=== PATIENT | male | born 1980 | race Caucasian/White ===

== ENCOUNTER → 2017-12-28 11:49 | Outpatient (CLI) | payer OTHER, SELFPAY ==
[2017-12-28 13:54] LABS: Absolute Lymphocyte Count 3.01 X10^3/ul (0.83-4.51); Basophil# 0.02 X10^3/uL; Basophil% 0.3 % (0-1); Eosinophil# 0.16 X10^3/uL; Hematocrit 41.7 % (40-54); Hemoglobin 13.8 g/dl (13.0-16.5); Lymphocyte # 3.01 X10^3/ul (4.0); Lymphocyte % 38.4 % (19-41); Mean Corp Hgb Conc 33.1 g/gl (32-36); Mean Corpuscular Volume 90.7 fL (80-94); Mean Platelet Vol. 9.6 fl (6.2-12.0); Monocyte% 7.7 % (0-10); Neutrophil # 4.04 X10^3/uL (2.7-7.7); Neutrophil % 51.5 % (47-70); Platelet Count 269 K/mm3 (150-450); RBC Distribution Width CV 13.2 % (11.6-14.6); RBC Distribution Width SD 43.8 fl (35.1-43.9); White Blood Count 7.8 K/mm3 (4.4-11.0)
[2017-12-28 13:57] LABS: POSITIVE COUNT NO; POSITIVE DIFFERENTIAL NO; POSITIVE MORPHOLOGY NO
[2017-12-28 14:13] LABS: ALB/GLOB Ratio 1.1 RATIO (0.9-2.4); AST(SGOT) 36 U/L (15-37); Alanine Aminotransfer ALT/SGPT 122 U/L (16-61); Albumin, Serum 3.6 g/dL (3.2-5.0); Alkaline Phosphatase 125 U/L (45-117); Anion Gap 7 (5-15); BUN 18 mg/dL (7-18); BUN/Creat Ratio 21.6 RATIO (10-20); Calcium,Total 8.5 mg/dL (8.5-10.1); Chloride 108 mmol/L (98-107); Creatinine, Serum 0.83 mg/dL (0.70-1.30); EST Glomerular Filtration Rate 109 mL/min (>60); Est Glom Filt Rate - Afr Amer 132 mL/min (>60); Globulin 3.4 g/dL (2.2-4.2); Glucose 116 mg/dL (74-106); Potassium 3.5 mmol/L (3.5-5.1); Sodium Level 141 mmol/L (136-145); Thyroid Stim Hormone (TSH) 1.54 uIU/mL (0.358-3.74)
[2017-12-29 11:20] LABS: H. Pylori Antibody (IgG) 0.43 (0.00-0.79)
== END ==
PROVIDERS: Family Provider Nurse Practitioner; PCP Nurse Practitioner; Visit Provider Family Medicine
DX: K21.9 Gastro-esophageal reflux disease without esophagitis (principal)
CPT/HCPCS: 36415; 80053; 84443; 85025; 86677

== ENCOUNTER → 2019-09-08 08:20 | Outpatient (CLI) | payer OTHER, SELFPAY ==
[2019-09-08 10:36] LABS: Hematocrit 48.5 % (40-54); Hemoglobin 15.9 g/dL (13.0-16.5)
[2019-09-08 10:41] LABS: International Normalized Ratio 1.1; Partial Thromboplast Time 29.9 Seconds (24.1-36.2); Prothrombin Time (Protime)PT. 13.5 SECONDS (11.7-14.9)
[2019-09-08 11:03] LABS: ALB/GLOB Ratio 1.2 RATIO (0.9-2.4); AST(SGOT) 20 U/L (15-37); Alanine Aminotransfer ALT/SGPT 52 U/L (16-61); Alkaline Phosphatase 77 U/L (45-117); Anion Gap 6 (5-15); BUN 17 mg/dL (7-18); BUN/Creat Ratio 17.1 RATIO (10-20); Calcium,Total 9.3 mg/dL (8.5-10.1); Chloride 106 mmol/L (98-107); Cholesterol 189 mg/dL (200); EST Glomerular Filtration Rate 88 mL/min (>60); Est Glom Filt Rate - Afr Amer 106 mL/min (>60); Globulin 3.3 g/dL (2.2-4.2); Glucose 105 mg/dL (74-106); High Density Lipoprotein 45 mg/dL; PSA,Total - Annual Screen 0.54 ng/mL (0.00-4.00); Potassium 4.3 mmol/L (3.5-5.1); Protein, Total 7.3 g/dL (6.4-8.2); Sodium Level 139 mmol/L (136-145); Triglycerides 143 mg/dL; Very Low Density Lipoprotein 29 mg/dL (5-40)
== END ==
PROVIDERS: Family Provider Family Medicine; PCP Family Medicine; Referring Provider Family Medicine; Visit Provider Family Medicine
DX: Z00.00 Encounter for general adult medical examination without abnormal findings (principal); K42.9 Umbilical hernia without obstruction or gangrene
CPT/HCPCS: 36415; 80053; 80061; 84153; 85014; 85018; 85610; 85730; G0103

== ENCOUNTER 2019-09-15 08:00 | Day surgery (SDC) | payer OTHER, SELFPAY ==
--- NOTE | 2019-09-08 03:25 | HP_ITS ---
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 Accompanied by: Is patient in pain?: No Allergies No Known Allergies Allergy (Unverified 09/08/19 15:17) Medications apple cider vinegar 500 mg tablet mg PO TID tab 09/08/19 [History] garlic 1,000 mg capsule 1,000 mg PO DAILY cap 09/08/19 [History Confirmed 09/08/19] glucosamine 500 vm-iyecweyad-jxpckfbs comp 400 mg-D3 667 unit-C-Mn cap cap PO BID cap 09/08/19 [History] multivitamin 1 cap PO DAILY 09/08/19 [History] omega 9-zdn-htn-fish oil 1,000 mg (120 mg-180 mg) capsule 1 cap PO DAILY 09/08/19 [History Confirmed 09/08/19] PFSH Medical History (Updated 09/08/19 @ 15:14 by Liz Villalobos) GERD (gastroesophageal reflux disease) (Acute) Umbilical hernia (Acute) Surgical History (Updated 09/08/19 @ 15:15 by Liz Villalobos) No history of previous surgery (Acute) Family History (Updated 09/08/19 @ 15:15 by Liz Rust Villalobos) Father Diabetes Heart disease Grandfather CVA (cerebral vascular accident) Social History (Updated 09/08/19 @ 15:25 by Lawson Armstrong MD) Smoking Status: Former smoker alcohol intake: current substance use type: does not use HPI HPI HPI: KENYA BOSS, is a 39 M who presents to the office today for HPI HPI Surgical H&P: Yes HPI: KENYA BOSS, is a 39 M who presents to the office today for umbilical hernia. Patient reports that in March he was trying to stop a log from falling and it hit him in the abdomen and he was having a lot of pain at that time. He is experienced bulging and pain since then. Patient reports no nausea or vomiting. ROS General General: No weight change, appetite, fatigue, colon cancer, breast cancer or weakness HEENT HEENT: No difficulty swallowing, eye injury, eye surgery, swollen glands or hoarseness Endo Endocrine: No thyroid disease, diabetes mellitus, thyroid cancer, Hair loss, heat intolerance or cold intolerance Skin Skin: No rash or changing moles Breast Breast: No left breast lump, right breast lump, nipple discharge, breast pain, abnormal mammogram, abnormal US or breast enlargement Musc Musculoskeletal: No back problems, arthritis, rheumatoid arthritis, gout or joint pain Cardio Cardiovascular: No murmur, pacemaker, heart disease, atrial fibrillation, high blood pressure, heart attack, heart stent, palpitations, shortness of breat with exertion or chest pain Psych Psychiatric: No depression, anxiety or hearing voices Resp Respiratory: No shortness of breath, No sleep apnea, No cough, No COPD, No asthma, No emphysema, No wheezing Gastro Gastrointestinal: No abdominal pain, No nausea or vomiting, No diarrhea, No constipation, No blood in stool, Yes acid reflux, No hemorrhoids, No ulcers, No gallbladder problem, No black,tarry stools Josh Hematologic: No blood thinners, No blood disorders, No bleeding, No anemia, No blood clots Neuro Neurologic: No system reviewed and no additional complaints, except as docu, No as per HPI, No abnormal walking, No abnormal hearing, No abnormal movements, No abnormal speech, No behavioral changes, No burning sensations, No confusion, No seizure-like activity, No unsteadiness, No dizziness, No localized weakness, No frequent falls, No headache(s), No lack of coordination, No loss of vision, No memory loss, No numbness, No other visual disturbances, No radiating pain, No restless legs, No sensory deficit, No fainting, No tingling, No tremor(s), No weakness, No other Exam Const General: cooperative Orientation: alert, oriented x3 HENMT Head: normal to inspection Ears: hearing grossly normal bilaterally Eyes Visual Colmenares: normal visual colmenares by confrontation Neck Neck: normal visual inspection Chest Chest palpation & inspection: normal inspection of the chest Breast Palpation: No nipple discharge Resp Effort & Inspection: normal respiratory effort Auscultation: clear to auscultation bilaterally Cardio Rate: regular rate Rhythm: regular rhythm Heart Sounds: no murmurs GI Inspection: non-distended Palpation: soft, hernia umbilical, nontender Musc Cervical Spine: normal cervical lordosis, cervical ROM normal Skin General: no rashes or lesions noted Neuro General: alert, oriented x3 Cranial Nerves: CN's II-XI intact bilaterally Cognition: normal cognition Extrem General: normal to inspection, full ROM Psych Appearance: grossly normal Affect: normal affect Assessment & Plan Problems 1. Umbilical hernia without obstruction and without gangrene K42.9 Plan The patient has a small umbilical hernia with a defect approximately 1 cm in diameter. It is easily reducible. I discussed umbilical hernia repair with the patient in detail. I discussed suture repair if the hernia defect is less than 1 cm or mesh repair if the defect is over 1 cm. I also discussed the risks include modalities to bleeding, infection, underlying organ injury. The patient understands the risks and is well to proceed. I discussed that after surgery he would be limited to 20 pounds of lifting for 4 weeks. Lawson Armstrong MD Pager: [facility] [address] [place] [address], [address] [place] [address] Office: Coding Level of Care Code Off vis,new,level 4 Diagnoses Umbilical hernia without obstruction and without gangrene K42.9 ??Obstruction and gangrene presence: without obstruction or gangrene 09/08/19 3925 <Electronically signed by Lawson ziegler MD> Date _ Lawson Armstrong MD I have re-examined the patient. There are no clinical changes since date of exam.
[2019-09-08 15:16] VITALS: BMI 35.4
[2019-09-15 08:46] VITALS: BP 134/94; PULSE 68; RESP 16; TEMP 36.3; O2SAT 97; BMI 35.1
[2019-09-15] MEDS: Lactated Ringers 1,000 ML 100 ML IV (08:54)
[2019-09-15] MEDS: Bupiv/Epi 0.5% Mpf 30 ML Vial (08:55)
[2019-09-15] MEDS: Cefazolin 2 GM in 0.9% Normal Saline 100 ML IV (09:08)
[2019-09-15 09:45] VITALS: BP 117/79; BP 134/94; PULSE 70; RESP 18; TEMP 36.3; O2SAT 94
--- NOTE | 2019-09-15 09:57 | PCM.OPRPT ---
Problem List (1) Umbilical hernia Status: Acute Qualifiers: Obstruction and gangrene presence: without obstruction or gangrene Qualified Code(s): K42.9 - Umbilical hernia without obstruction or gangrene Report of Operation Date of Procedure: 09/15/19 Pre-Operative Diagnosis: Umbilical hernia Post-Operative Diagnosis: Same Surgery/Procedure Performed:: Umbilical hernia repair Description of Procedure: Patient was brought to the operating room and general anesthesia was induced. The abdomen was prepped and draped in usual sterile fashion. A curvilinear incision was marked and anesthetized superior to the umbilicus. An incision was then made and deepened to the fascia. The umbilical stalk was surrounded and divided from the hernia sac. The fascia was then surrounded and cleared. Next the small fascial defect was closed with interrupted 0 PDS sutures. The umbilical stalk was then tacked to the fascia using 3-0 Vicryl suture. The incision was closed with interrupted 3-0 Vicryl sutures as well as a running 4-0 Monocryl suture. Steri-Strips and a bandage were then applied. Patient was awoken and taken to PACU in stable condition. - Admit VTE Documentation VTE Mechan Device Prophylaxis: SCD's
[2019-09-15 10:00] VITALS: BP 100/77; BP 134/94; PULSE 57; RESP 18; O2SAT 97
--- NOTE | 2019-09-15 10:02 | PCM.DC.HER ---
Discharge Diet: Light diet - advance as tolerated Discharge Activity: Return to Normal Activity, May Not Drive - for 2-3 days or while taking narcotic pain meds., May Shower - with the bandage in place 1-2 days after surgery. Lifting Restrictions: 20 pounds for 4-6 weeks. Additional Activity Instructions:: Climbing stairs is fine, walking is encouraged. Sitting in bed may be uncomfortable. Sitting up using your lateral muscles (sitting up sideways) is usually more comfortable. Do not drive, work heavy equipment of sign legal documents for 24 hours. Pain medications may cause nausea, you should typically eat light foods as you take your pain medications. Pain medications may also cause constipation. If you have difficulty with this, discuss with your doctor. Call your doctor if your incision/area has: Continuous Slow Oozing, Sudden Increased Bleeding, Increased Pain/ Swelling, Increased Redness, Foul Smelling Discharge Call your doctor if you observe: Fever of 101 or Higher Suture Line Care: Avoid Pulling/Pushing, Avoid Pinching/Bending Change Dressing in (Days):: 3 - Leave steri-strips for 1 week. May protect with a guaze bandaid. Cleanse incision/area with: Keep Dressing Clean & Dry Allergies/Adverse Reactions: Allergies No Known Allergies Allergy (Unverified 09/15/19 08:26) Medications to take at Discharge apple cider vinegar 500 mg tablet 500 mg PO TID tab 09/08/19 garlic 1,000 mg capsule 1,000 mg PO DAILY cap 09/08/19 glucosamine 500 ut-ncjgovlbp-mhnfflhk comp 400 mg-D3 667 unit-C-Mn cap 1 cap PO BID cap 09/08/19 multivitamin 1 cap PO DAILY 09/08/19 omega 0-twh-uxt-fish oil 1,000 mg (120 mg-180 mg) capsule 1 cap PO DAILY 09/08/19 Oxycodone HCl/Acetaminophen [Percocet 5-325 mg Tablet] 1 - 2 tab PO Q6H PRN 4 Days #20 tablet 09/15/19 The following prescriptions were given: Oxycodone HCl/Acetaminophen [Percocet 5-325 mg Tablet] 1 - 2 tab PO Q6H PRN 4 Days #20 tablet PRN Reason: Pain Score 4-10/10 Transmission Status: Sent to [facility] Primary Care Physician: Wilfred Shankar MD [Primary Care Provider] - Test Results: Test results from this visit will be discussed in further detail at your follow-up appointment, if applicable. Please Follow Up With: Lawson Armstrong MD When: Please call to schedule 2 week follow up appointment. [phone]
[2019-09-15 10:15] VITALS: BP 103/69; BP 134/94; PULSE 55; RESP 18; O2SAT 97
[2019-09-15 10:29] VITALS: BP 107/76; BP 134/94; PULSE 68; RESP 18; TEMP 36.3; O2SAT 93
[2019-09-15 11:36] VITALS: BP 124/89; BP 134/94; PULSE 51; RESP 16; TEMP 36.4; O2SAT 98
== END 2019-09-15 11:45 | disposition home or self-care (01) ==
LOC: SDC 08:00 → AC 08:05
PROVIDERS: Family Provider Family Medicine; PCP Family Medicine; Referring Provider Surgery; Visit Provider Surgery
PROC: (CPT 49585; principal; 2019-09-15 09:45)
DX: K42.9 Umbilical hernia without obstruction or gangrene (principal); K21.9 Gastro-esophageal reflux disease without esophagitis; Z87.891 Personal history of nicotine dependence
CPT/HCPCS: 00830; 49585; J7120; J2405

== ENCOUNTER → 2020-07-11 10:02 | Outpatient (CLI) | payer OTHER, SELFPAY ==
[2020-07-11 13:17] LABS: Thyroid Stim Hormone (TSH) 1.06 uIU/mL (0.358-3.74)
[2020-07-14 16:07] LABS: Endomysial Antibody IgA Negative (Negative); Immunoglobulin A 169 mg/dL (90-386); Testosterone, Free 6.55 ng/dL (5.00-21.00)
[2020-07-15 04:45] LABS: Deamidated Gliadin IgA 3 units (0-19); Deamidated Gliadin IgG 4 units (0-19); Testosterone, % Free 2.19 % (1.50-4.20); Testosterone, Total 299 ng/dL (264-916); t-Transglutaminase IgA <2 U/mL (0-3)
== END ==
PROVIDERS: PCP Family Medicine; Referring Provider Family Medicine; Visit Provider Family Medicine
DX: R68.82 Decreased libido (principal); K52.9 Noninfective gastroenteritis and colitis, unspecified
CPT/HCPCS: 36415; 82784; 83516; 84402; 84403; 84443; 86255

== ENCOUNTER → 2020-09-04 09:23 | Outpatient (CLI) | payer OTHER, SELFPAY | PROVIDERS: PCP Family Medicine; Referring Provider Family Medicine; Visit Provider Family Medicine | DX: R68.82 Decreased libido (principal) | CPT/HCPCS: 36415; 82784; 83516; 84402; 84403; 86255 ==

== ENCOUNTER → 2024-10-13 | Outpatient (CLI) | payer BC, SELFPAY ==
[2024-10-13 12:40] LABS: Absolute Lymphocyte Count 3.21 X10^3/uL (0.83-4.51); Basophil# 0.05 X10^3/uL; Basophil% 0.5 % (0-1); Eosinophil# 0.11 X10^3/uL; Eosinophils% 1.2 % (0-5); Hematocrit 46.7 % (40-54); Hemoglobin 15.2 g/dL (13.0-16.5); Lymphocyte # 3.21 X10^3/ul (0.83-4.51); Lymphocyte % 34.6 % (19-41); Mean Corp Hgb Conc 32.5 g/dL (32-36); Mean Corpuscular Hgb 30.1 pg (27.0-32.0); Mean Corpuscular Volume 92.5 fL (80-94); Mean Platelet Vol. 9.5 fl (6.2-12.0); Monocyte# 0.92 X10^3/uL; Monocyte% 9.9 % (0-10); NRBC Flagged by Analyzer 0 % (0-5); Neutrophil # 4.98 X10^3/uL (2.7-7.7); Neutrophil % 53.6 % (47-70); Platelet Count 277 K/mm3 (150-450); RBC Distribution Width CV 12.8 % (11.6-14.6); RBC Distribution Width SD 43.6 fl (35.1-43.9); Red Blood Count 5.05 M/mm3 (4.6-6.2); White Blood Count 9.3 K/mm3 (4.4-11.0)
[2024-10-13 13:28] LABS: ALB/GLOB Ratio 1.1 RATIO (0.9-2.4); AST(SGOT) 18 U/L (15-37); Alanine Aminotransfer ALT/SGPT 36 U/L (16-61); Albumin, Serum 3.8 g/dL (3.2-5.0); Alkaline Phosphatase 67 U/L (45-117); Anion Gap 7 (5-15); BUN 17 mg/dL (7-18); Calcium,Total 9.4 mg/dL (8.5-10.1); Chloride 107 mmol/L (98-107); Cholesterol 188 mg/dL (200); EST Glomerular Filtration Rate 97 mL/min (>60); Est Glom Filt Rate - Afr Amer 117 mL/min (>60); Globulin 3.4 g/dL (2.2-4.2); Glucose 89 mg/dL (74-106); High Density Lipoprotein 41 mg/dL; PSA,Total - Annual Screen 0.67 ng/mL (0.00-4.00); Potassium 3.9 mmol/L (3.5-5.1); Protein, Total 7.2 g/dL (6.4-8.2); Sodium Level 138 mmol/L (136-145); Triglycerides 215 mg/dL; Very Low Density Lipoprotein 43 mg/dL (5-40)
== END | disposition home or self-care (01) ==
LOC: MFPLAB 09:39
PROVIDERS: PCP Family Medicine; Referring Provider Family Medicine; Visit Provider Family Medicine
DX: G47.33 Obstructive sleep apnea (adult) (pediatric) (principal); Z12.5 Encounter for screening for malignant neoplasm of prostate
CPT/HCPCS: 36415; 80053; 80061; 84153; 85025; G0103

== ENCOUNTER 2025-01-01 07:27 | Day surgery (SDC) | payer BC, SELFPAY ==
[2025-01-01] VITALS (8 sets, daily range): BP systolic 102–143; BP diastolic 72–95; PULSE 59–76; RESP 16–18; TEMP 36.3–36.5; O2SAT 92–98; BMI 38.0
[2025-01-01] MEDS: Lactated Ringers 1,000 ML 15 ML IV (07:48)
--- NOTE | 2025-01-01 07:53 | PCM.PRE.AN2 ---
ASA Classification* ASA Classification ASA Classification: 2 Assessment & Plan Anesthesia* Anesthesia Assessment Anesthesia Assessment: Discussed sedation and/or anesthesia options, risks, benefits, and alternatives with patient/parents/legal guardian/POA. Questions invited. The patient/parents/legal guardian/POA seems to understand and agrees to proceed with anesthesia plan. Reviewed the physical assessment, medical history, allergy history and patient home medications list prior to surgery/procedure/anesthetic and documented any changes. Performed airway and anesthesia risk assessments. Anesthesia Type Anesthesia Type: General History Source History Obtained from:: Patient and Chart Anesthesia Focused Assessment* Temperature: 97.3 F Pulse Rate: 60 Blood Pressure: 143/95 Respiratory Rate: 16 Pulse Ox: 98 Oxygen Delivery Method: Room Air Airway Assessment Mouth opens: >3 cm Mallampati Score: II Teeth Condition: Intact and Chipped/Broken (front) Neck Range of motion (ROM): Full ROM Focused Labs Anesthesia Preop lab: CBC WBC 9.3 K/mm3 (4.4-11.0) 10/13/24 09:40 10/13/24 RBC 5.05 M/mm3 (4.6-6.2) 10/13/24 09:40 10/13/24 Hgb 15.2 g/dL (13.0-16.5) 10/13/24 09:40 10/13/24 Hct 46.7 % (40-54) 10/13/24 09:40 10/13/24 Plt Count 277 K/mm3 (150-450) 10/13/24 09:40 10/13/24 CHEMISTRY Potassium 3.9 mmol/L (3.5-5.1) 10/13/24 09:40 10/13/24 Sodium 138 mmol/L (136-145) 10/13/24 09:40 10/13/24 BUN 17 mg/dL (7-18) 10/13/24 09:40 10/13/24 Creatinine 0.90 mg/dL (0.70-1.30) 10/13/24 09:40 10/13/24 Glucose 89 mg/dL (74-106) 10/13/24 09:40 10/13/24 TSH 1.06 uIU/mL (0.358-3.74) 07/11/20 10:04 07/11/20 COAG PT 13.5 SECONDS (11.7-14.9) 09/08/19 08:23 09/08/19 Pre-Assessment Diagnosis/Proposed Procedure Planned Operative Procedure(s): CSCOPE Anesthesia History Anesthesia History - rn postpartum: Anesthesia History - rn postpartum Hx Hospitalization No 12/26/24 14:12 Any Problems With Anesthesia No 12/26/24 14:12 Cholinesterase deficiency No 12/26/24 14:12 You/Your Family Experience No 12/26/24 14:12 fever (hyperthermia) with Relationship Recent Exposure to Contagious No 01/01/25 07:45 Disease Does patient have nerve No 12/26/24 14:12 stimulator Patient instructed to have device shut off --Does patient have Pacemaker No 01/01/25 07:45 or ICD? When Was Last Pacemaker Check QUESTION #4 FULL TEXT: You/Your Family Experience fever (hyperthermia) with Anesthesia Last Oral Intake Last Oral intake: Last Oral Intake NPO since 04:30 01/01/25 07:45 Meds taken in AM with sips of No 01/01/25 07:45 water? Meds patient instructed to take am of surgery PONV PONV - rn postpartum: PONV - rn postpartum Female No 12/26/24 14:12 HX of Motion Sickness No 12/26/24 14:12 HX of N/V After Surgery No 12/26/24 14:12 Non-Smoker Yes 12/26/24 14:12 Duration of Surgery greater No 12/26/24 14:12 than 60 minutes Number of Risk Factors 1 12/26/24 14:12 PONV Score Low Risk 12/26/24 14:12 Height & Weight Height & Weight: Anesthesia: Height & Weight Height 5 ft 10 in 01/01/25 07:45 Weight: 120.202 kg 01/01/25 07:45 Body Mass Index (BMI) 38.0 01/01/25 07:45 Respiratory Assessment Respiratory Assessment - rn postpartum: Respiratory Tract Infection Hx - rn postpartum Hx Respiratory Tract Infection No 12/26/24 14:12 STOP Sleep Apnea STOP Sleep Apnea - rn postpartum: STOP Sleep Apnea - rn postpartum Hx Hypertension No 12/26/24 14:12 Hx Sleep Apnea No: BEING TESTED 12/26/24 14:12 CPAP BIPAP Do you snore loudly (louder No 12/26/24 14:12 than talking or can be heard Do you often feel tired/ No 12/26/24 14:12 fatigued/ sleepy during daytime? Has anyone observed you stop No 12/26/24 14:12 breathing during sleep? STOP Results Negative 12/26/24 14:12 QUESTION #5 FULL TEXT : Do you snore loudly (louder than talking or can be heard through closed doors)? 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 Specify any problems Hx of Preganancy in last 3 N/A 12/26/24 14:12 Months Nurse Filling Out Transfusion NBUCHER 12/26/24 14:12 & Questions: Date: 12/26/24 12/26/24 14:12 Time: 14:13 12/26/24 14:12 Patient unable to answer at this time (ie. confused, unrespo /Reproduction History /Reproductive History - rn postpartum: /Reproductive Hx- rn postpartum Hx Now No 12/26/24 14:12 Gestational Age (in weeks): EDC: Hx Hx Para Hx Section SAB No 12/26/24 14:12 Active Medications Active Medications: Current Medications Generic Name Dose Route Start Last Admin Trade Name Freq PRN Reason Stop Dose Admin Lactated Ringer's 1,000 mls @ 15 mls/hr 01/01/25 07:45 01/01/25 07:48 IV 15 mls/hr .Q48H HARRY Administration PFSH Medical History (Updated 12/26/24 @ 14:16 by Vaishali Renae) Wears contact lenses History of hiatal hernia Former smoker GERD (gastroesophageal reflux disease) Umbilical hernia Home Medications ?Medication ?Instructions ?Recorded ?Last Taken ?Type apple cider vinegar 500 mg tablet 500 mg PO TID 09/08/19 Unknown History garlic 1,000 mg capsule 1,000 mg PO DAILY 09/08/19 Unknown History glucosamine 500 1 cap PO BID 09/08/19 Unknown History vp-qtapbxaqy-dleaxucz comp 400 mg-D3 667 unit-C-Mn cap multivitamin 1 cap PO DAILY 09/08/19 Unknown History omega 6-bdp-hsx-fish oil 1,000 mg 1 cap PO DAILY 09/08/19 Unknown History (120 mg-180 mg) capsule psyllium husk (with sugar) 3 1 tbsp PO ONCE 10/20/24 Unknown History gram/7 gram oral powder (Daily Fiber (psyllium-sucrose)) vitamin E (dl, acetate) 45 mg (100 45 mg PO QDAY 10/20/24 Unknown History unit) capsule Allergy/AdvReac Type Severity Reaction Status Date / Time No Known Allergies Allergy Verified 01/01/25 07:40 Family History (Updated 10/20/24 @ 11:57 by Kimberly Pearson) Father Diabetes Heart disease Grandfather CVA (cerebral vascular accident) Mother Colon polyps Surgical History History of umbilical hernia repair (09/15/19) Social History (Updated 10/20/24 @ 11:57 by Kimberly Pearson) household members: spouse current occupational status: employed Smoking Status: Former smoker alcohol intake: current substance use type: does not use Review of Systems (Anesthesia) ROS Narrative System reviewed and no additional complaints, except as documented. Physical Exam Const alert, oriented x3 and average body habitus Resp normal respiratory effort, normal air movement and clear to auscultation bilaterally Cardio regular rate, regular rhythm, no murmurs and diaphoretic
--- NOTE | 2025-01-01 08:42 | HP.PCM_ITS ---
[facility] - General General Date of Service: 01/01/25 HPI Narrative KENYA BOSS, is a 44 M who presents for screening colonoscopy. Patient never had previous colonoscopy. No family history of colon cancer. Patient's mom did have polyps patient does not admit to larger polyps that he is aware of. Patient has reflux only as needed depending on what he eats. Patient denies any chronic abdominal pain/nausea/vomiting. Patient has bowel movements daily denies any blood. [facility] Medical History (Updated 12/26/24 @ 14:16 by Vaishali Renae) Wears contact lenses History of hiatal hernia Former smoker GERD (gastroesophageal reflux disease) Umbilical hernia Home Medications ?Medication ?Instructions ?Recorded ?Last Taken ?Type apple cider vinegar 500 mg tablet 500 mg PO TID Unknown History garlic 1,000 mg capsule 1,000 mg PO DAILY 09/08/19 U nknown History glucosamine 500 1 cap PO BID 09/08/19 Unknow n History ov-yrtwlgfvi-uglmoinj comp 400 mg-D3 667 unit-C-Mn cap multivitamin 1 cap PO DAILY 09/08/19 Unkn own History omega 7-vte-tli-fish oil 1,000 mg 1 cap PO DAILY 09/08 Unknown History (120 mg-180 mg) capsule psyllium husk (with sugar) 3 1 tbsp PO ONCE 10/20/24 U nknown History gram/7 gram oral powder (Daily Fiber (psyllium-sucrose)) vitamin E (dl, acetate) 45 mg (100 45 mg PO QDAY 10/20 Unknown History unit) capsule Allergy/AdvReac Type Severity Reaction Status Date / Time No Known Allergies Allergy Verified 01/01/25 07:40 Family History (Updated 10/20/24 @ 11:57 by Kimberly Pearson) Father Diabetes Heart disease Grandfather CVA (cerebral vascular accident) Mother Colon polyps Surgical History History of umbilical hernia repair (09/15/19) Social History (Updated 10/20/24 @ 11:57 by Kimberly Pearson) household members: spouse current occupational status: employed Smoking Status: Former smoker alcohol intake: current substance use type: does not use Past Medical/Surgical History Planned Operation Planned Operative Procedure(s): CSCOPE S.O.S: No Previous Hospitalizations/Surgeries HX Hospitalizations: No HX of Surgeries: n/a Any Problems With Anesthesia: No You/Your Family Experience Fever (Hyperthermia) With Anes: No Cholinesterase deficiency: No Cardiovascular Hx Chest Pain within Last 2 months: No Hx of Irregular Heartbeat and/or Afib: No Hx Heart Attack: No Hx Congestive Heart Failure: No Hx Rheumatic Fever: No Hx Hypertension: No Hx Internal Defibrillator: No Hx Pacemaker: No Hx Cardiac Catheterization: No Hx Cardiac Surgery/Stents/Etc.: No Hx Stress Test: No Hx Pain in Legs when Walking/Leg Cramps: No Respiratory Chronic Cough: No HX of Shortness of Breath: No Hoarseness: No Hx Chronic Obstructive Pulmonary Disease (COPD): No Hx Asthma: No Hx Emphysema: No Hx Sleep Apnea: No (BEING TESTED) Hx Respiratory Tract Infection/Cold (presently): No Do You Snore Loudly (louder than talking or can be heard): No Do You Often Feel Tired/ Fatigued/ Sleepy Dring Daytime?: No Has Anyone Observed You Stop Breathing During Sleep?: No Result (for STOP score): Negative Hx Smoking: No Smoking Status: Former smoker Gastrointestinal Controlled With Meds: No (no meds) Hx Gastrointestinal Disorders: No Hx Gastrointestinal Bleed: No Hx Ulcer: No Hx Hiatal Hernia: No Difficulty Chewing/Swallowing: No Special diet followed at home: No Hx Unplanned Weight Loss of 20#: No HX Unplanned Weight Gain of 20#: No Neurological Hx Seizures: No HX Syncope/Blackout Spells/Unconsciousness: No Hx Transient Ischemic Attacks (TIA): No Hx Multiple Sclerosis: No Hx Parkinson's Disease: No Hx Head/Neck Injury: Yes (concussion in the past) Hx Headaches: Yes (occ migraines) Hx Back Injury/Pain: No Recent Onset of Speech Difficulty: No Restless Legs: No Does patient have nerve stimulator: No Blood Disorder Hx Leukemia: No Bleeding Tendencies: No Hx Deep Vein Thrombosis: No Hx High Cholesterol: No Blood Transmitted Disease: No Hx Hepatitis: No Hx Cirrhosis: No Hx Anemia: No Hx Blood Disorders: No Reproduction : No Genitourinary Hx Renal Disease: No Musculoskeletal Hx Arthritis: No Hx Rheumatoid Arthritis: No Hx Gout: No Recent Onset of an Orthopedic Problem: No Endocrine Hx Diabetes: No Thyroid Disease: No Hx Steroid Therapy: No Psycho/Social Hx Substance Use: No Hx Alcohol Use: Yes (occ) Hx Anxiety: No Hx Depression: No Mental Illness: No Hx Dementia: No Miscellaneous Hx Cancer: No Recent Exposure to Contagious Disease: No Hx of C-Diff: No Any Loose Teeth: No Allergies No Known Allergies Allergy (Verified 01/01/25 07:40) Discharge Is Pt Admitted From a Fdc, or a Mcfp: No After D/C, Where Do you Plan to Go: Return Home Vital Signs Vital Signs Vital Signs: 01/01/25 07:45 01/01/25 07:45 01/01/25 07:54 Temperature 97.3 F L 97.3 F L Temperature Source Temporal Pulse Rate 60 60 Respiratory Rate 16 16 Respiratory Pattern Normal Blood Pressure 143/95 H 143/95 H Blood Pressure Mean 111 Blood Pressure Source Monitor Blood Pressure Position Semi-Fowlers Blood Pressure Location Left Arm Pulse Ox 98 98 Oxygen Delivery Method Room Air Room Air Weight Weight: 265 lb Body Mass Index (BMI) 38.0 Physical Exam Const alert, oriented x3 and no apparent distress HEENT normocephalic and head/scalp atraumatic Resp normal respiratory effort Cardio regular rate GI soft to palpation and non-tender; Negative for non-distended Palpation: Negative for guarding Extremity no clubbing, cyanosis or edema Skin no rashes or lesions noted Neuro CN's II-XII intact bilaterally Psych mental status grossly normal Assessment & Plan Assessment/Plan (1) Encounter for screening for malignant neoplasm of colon: Surgery Risks - Colonoscopy Risks Include but are not Limited To: Risks include but are not limited to: Bleeding, perforation requiring further surgery, inability to complete colonoscopy requiring barium enema.
--- NOTE | 2025-01-01 09:20 | OP.CCLET_ITS ---
01/01/2025 Wilfred Shankar [address] [place] [address] Re : Colonoscopy procedure for Delmar Daryn Dear Dr. Shankar This procedure was performed on Wednesday, January 01, 2025. My impressions and recommendations are as follows: Impressions : - The entire examined colon is normal on direct and retroflexion views. - No specimens collected. Recommendations : - Discharge patient to home. - Resume previous diet. - Continue present medications. - Repeat colonoscopy in 10 years for screening purposes. My findings are described in the full procedure note, which is enclosed. If I can be of further assistance, please feel free to contact me at Doctor phone number(s): , Work: . Sincerely, MD Alida Whitt MD 01/01/2025 9:19:46 AM This report has been signed electronically.
--- NOTE | 2025-01-01 09:20 | OP.COLON_ITS ---
Patient Name: Delmar Stearns Procedure Date: 01/01/2025 8:55 AM Date of : 1980 Age: 44 Procedure: Colonoscopy Indications: Screening for colorectal malignant neoplasm Providers: Alida Louis MD Referring MD: Wilfred Shankar Medicines: Monitored Anesthesia Care Patient Profile: This is a 44 year old male. Last Colonoscopy: none. The patient's first colonoscopy is today. Complications: No immediate complications. Procedure: Pre-Anesthesia Assessment: - Prior to the procedure, a History and Physical was performed, and patient medications and allergies were reviewed. The patient's tolerance of previous anesthesia was also reviewed. The risks and benefits of the procedure and the sedation options and risks were discussed with the patient. All questions were answered, and informed consent was obtained. Prior Anticoagulants: The patient has taken no anticoagulant or antiplatelet agents. ASA Grade Assessment: Per anesthesia. After reviewing the risks and benefits, the patient was deemed in satisfactory condition to undergo the procedure. After I obtained informed consent, the scope was passed under direct vision. Throughout the procedure, the patient's blood pressure, pulse, and oxygen saturations were monitored continuously. The pediatric colonoscope was introduced through the anus and advanced to the cecum, identified by the appendiceal orifice, ileocecal valve and palpation. The colonoscopy was performed without difficulty. The patient tolerated the procedure well. The quality of the bowel preparation was good. Scope In: 9:00:58 AM Scope Withdrawal Time 0 hours 6 minutes 12 seconds Scope Out: 9:14:55 AM Total Procedure Duration Time 0 hours 13 minutes 57 seconds Findings: The perianal and digital rectal examinations were normal. The entire examined colon appeared normal on direct and retroflexion views. Impression: - The entire examined colon is normal on direct and retroflexion views. - No specimens collected. Recommendation: - Discharge patient to home. - Resume previous diet. - Continue present medications. - Repeat colonoscopy in 10 years for screening purposes. Procedure Code(s): --- Professional --- G0121, PT, Colorectal cancer screening; colonoscopy on individual not meeting criteria for high risk Diagnosis Code(s): --- Professional --- Z12.11, Encounter for screening for malignant neoplasm of colon CPT copyright 2021 [employer]. All rights reserved. The codes documented in this report are preliminary and upon radiological defense officer review may be revised to meet current compliance requirements. MD Alida Whitt MD 01/01/2025 9:19:46 AM This report has been signed electronically. Number of Addenda: 0 Note Initiated On: 01/01/2025 8:55 AM
--- NOTE | 2025-01-01 09:25 | PCM.POST.ANE ---
Anesthesia: Postop Eval I Current Vital Signs Temperature: 97.7 F Pulse Rate: 72 Blood Pressure: 105/73 Respiratory Rate: 16 Pulse Ox: 93 Oxygen Delivery Method: Room Air Assessment Airway patent: Yes Spontaneous unlabored respirations: Yes Mental status: Asleep nausea: No Vomiting: No Anesthesia Complication: No Fluid Hydration Crystalloid volume administer (ml): 400 Total IV fluid infused: 400 Progress Note Anesthesia document: Postop Eval 1 completed: Yes
--- NOTE | 2025-01-01 09:56 | PCM.POSTANE2 ---
Anesthesia Postop Eval I Sum Postop Eval Completion status Anesthesia document: Postop Eval 1 completed: Yes Anesthesia Postop Eval I Summary Anesthesia Postop Eval I Summary: Anesthesia Postop Eval I: Assessment Summary Airway patent Yes 01/01/25 09:26 [email or web address] Spontaneous unlabored Yes 01/01/25 09:26 [email or web address] respirations Mental status Asleep 01/01/25 09:26 [email or web address] nausea No 01/01/25 09:26 [email or web address] Vomiting No 01/01/25 09:26 [email or web address] Anesthesia Postop Eval I: Fluid Summary Crystalloid volume administer 400 01/01/25 09:26 [email or web address] (ml) Colloids volume administered ( ml) Blood Product volume administered (ml) Total IV fluid infused 400 01/01/25 09:26 [email or web address] Anesthesia Postop Eval I: Summary Notes Anesthesia Complication No 01/01/25 09:26 [email or web address] Anesthesia Complication Comment: Post-operative progress note Anesthesia: Postop Eval II Evaluation Mental status: Awake Pain Level: 0 nausea: No Vomiting: No Complications Anesthesia Complication: No
== END 2025-01-01 09:58 | disposition home or self-care (01) ==
LOC: EN 07:29 → AC 07:29
PROVIDERS: PCP Family Medicine; Referring Provider Family Medicine; Visit Provider Surgery
PROC: 0DJD8ZZ Inspection of Lower Intestinal Tract, Via Natural or Artificial Opening Endoscopic (ICD-10-PCS; CPT 45378; principal; 2025-01-01 08:40)
DX: Z12.11 Encounter for screening for malignant neoplasm of colon (principal); K21.9 Gastro-esophageal reflux disease without esophagitis; Z87.891 Personal history of nicotine dependence; Z83.719 Family history of colon polyps, unspecified
CPT/HCPCS: 45378; J2405